=== PATIENT | male | born 1960 | race African-American/Black ===

== ENCOUNTER 2020-12-28 10:31 | Day surgery (SDC) | payer OTHER ==
[2020-12-25 12:25] LABS: Basophils # (auto) 0.1 10 ^3/uL (0-0.2); Basophils % (auto) 1.3 % (0.0-2.0); Eosinophils # (auto) 0.3 10 ^3/uL (0-0.8); Eosinophils % (auto) 3.7 % (0.0-7.0); Hematocrit 40.9 % (41.0-53.0); Hemoglobin 14.6 g/dL (13.5-17.5); Lymphocytes # (auto) 2.6 10 ^3/uL (0.4-5.4); Lymphocytes % (auto) 37.2 % (10.0-50.0); Mean Corpuscular Hemoglobin 29.6 pg (28.0-32.0); Mean Corpuscular Hgb Conc. 35.6 g/dL (32.0-36.0); Mean Corpuscular Volume 83.2 fL (80.0-100.0); Monocytes # (auto) 0.7 10 ^3/uL (0-1.3); Monocytes % (auto) 10.2 % (0.0-12.0); Neutrophils # (auto) 3.3 10 ^3/uL (1.6-8.6); Neutrophils % (auto) 47.6 % (37.0-80.0); Nucleated Red Blood Cells % 0.1 %; Platelet Count (auto) 249 10^3/uL (140-450); Red Blood Cells 4.92 10^6/uL (4.5-5.90); Red Cell Distribution Width 14.2 % (11.8-14.3); White Blood Cell 6.9 10^3/uL (4.4-10.8)
[2020-12-25 12:57] LABS: Potassium 3.5 mmol/L (3.5-5.1)
[2020-12-25 13:07] LABS: Albumin 3.6 g/dL (3.4-5.0); BUN/Creatinine Ratio 14.9; Bilirubin, Total 0.6 mg/dL (0.2-1.0); Calcium 8.6 mg/dL (8.5-10.1); Total Protein 7.1 g/dL (6.4-8.2)
[~2020-12-28] VITALS: Ht 177.8 cm; Wt 84.4 kg
[~2020-12-28 10:31] MED LIST: ACET-1746 PO
[2020-12-28] MEDS ORDERED: SODIUM CHLORIDE LOCK 10 ML ONE (13:20)
[2020-12-28] MEDS ORDERED: diphenhdrAMINE HCL 50 MG/1 ML VL ONE (13:20)
[2020-12-28] MEDS: fentaNYL CITRATE 100 MCG/2 ML VL ONE ×3 (14:11→14:22)
[2020-12-28] MEDS: MIDAZOLAM HCL 5 MG/ML-1ML VIAL ONE ×3 (14:11→14:22)
[2020-12-28 14:29] VITALS: BP 120/74
== END 2020-12-28 15:05 | disposition home or self-care (01) ==
LOC: GI 10:31
PROVIDERS: ATTEND Internal Medicine Gastroenterology
DX: R10.9 Unspecified abdominal pain (principal); D12.4 Benign neoplasm of descending colon; M62.89 Other specified disorders of muscle; K64.8 Other hemorrhoids; K52.9 Noninfective gastroenteritis and colitis, unspecified; K57.30 Diverticulosis of large intestine without perforation or abscess without bleeding; N40.0 Benign prostatic hyperplasia without lower urinary tract symptoms; Z20.822 Contact with and (suspected) exposure to COVID-19; Z98.890 Other specified postprocedural states; Z90.89 Acquired absence of other organs
CPT/HCPCS: 36415; 45380; 45385; 80053; 85025; J1200; J2250; J3010; J7030; U0003; G0500

== ENCOUNTER 2021-01-09 06:54 | Day surgery (SDC) | payer OTHER ==
[2021-01-04 12:05] LABS: Basophils # (auto) 0.1 10 ^3/uL (0-0.2); Basophils % (auto) 1.2 % (0.0-2.0); Eosinophils # (auto) 0.4 10 ^3/uL (0-0.8); Hematocrit 38.2 % (41.0-53.0); Hemoglobin 13.7 g/dL (13.5-17.5); Lymphocytes # (auto) 2.9 10 ^3/uL (0.4-5.4); Lymphocytes % (auto) 41.2 % (10.0-50.0); Mean Corpuscular Hemoglobin 29.8 pg (28.0-32.0); Mean Corpuscular Hgb Conc. 35.7 g/dL (32.0-36.0); Mean Corpuscular Volume 83.5 fL (80.0-100.0); Monocytes # (auto) 0.6 10 ^3/uL (0-1.3); Monocytes % (auto) 8.6 % (0.0-12.0); Neutrophils # (auto) 3.2 10 ^3/uL (1.6-8.6); Nucleated Red Blood Cells % 0.2 %; Red Blood Cells 4.58 10^6/uL (4.5-5.90); Red Cell Distribution Width 13.9 % (11.8-14.3); Urine Bacteria FEW /hpf (None Seen); Urine Blood Negative /uL (Negative); Urine Mucus FEW (None Seen); Urine Specific Gravity 1.032 (1.001-1.035); Urine WBC 1 /hpf (0 - 3); White Blood Cell 7.2 10^3/uL (4.4-10.8)
[2021-01-04 12:34] LABS: Potassium 3.7 mmol/L (3.5-5.1)
[2021-01-04 12:47] LABS: Albumin 3.7 g/dL (3.4-5.0); BUN/Creatinine Ratio 18.4; Bilirubin, Total 0.2 mg/dL (0.2-1.0); Calcium 8.6 mg/dL (8.5-10.1)
[~2021-01-09] VITALS: Ht 177.8 cm; Wt 88.5 kg
[2021-01-09] MEDS ORDERED: METOCLOPRAMIDE HCL 5MG/ml INJ 2ml VIAL IV PRN (08:15)
[2021-01-09] MEDS ORDERED: MORPHINE SULF INJ 2 MG/ML SYRINGE 1ML IV PRN (08:15)
[2021-01-09] MEDS ORDERED: MEPERIDINE HCL (25 MG/ML) 1ML VIAL ONE (08:28)
[2021-01-09] MEDS ORDERED: MIDAZOLAM HCL 1MG/1ML-2 ML VIAL ONE (08:28)
[2021-01-09] MEDS ORDERED: SODIUM CHLORIDE LOCK 10 ML ONE (08:28)
[2021-01-09] MEDS ORDERED: ONDANSETRON HCL 4 MG/2 ML VIAL ONE (08:28)
[2021-01-09] MEDS ORDERED: fentaNYL CITRATE 100 MCG/2 ML VL ONE (08:28)
[2021-01-09] MEDS ORDERED: PROPOFOL 10 MG/ML 20 ML IV ONE (08:28)
[2021-01-09] MEDS ORDERED: DOXAPRAM HCL 20 MG/ML 20ML VIAL INJ IV ONE (08:32)
[2021-01-09] MEDS ORDERED: BUPIVACAINE W/ EPINEPH 0.25% INJ 50ML MDV ONE (08:38)
[2021-01-09] MEDS ORDERED: ceFAZolin 1GM/50ML 100 ML IV ONE (08:39)
[2021-01-09] MEDS: HYDROmorphone HCL 2 MG/ML VL IV PRN ×2 (10:38→11:12)
== END 2021-01-09 11:25 | disposition home or self-care (01) ==
LOC: SUR 06:54
PROVIDERS: ATTEND Surgery
DX: K40.90 Unilateral inguinal hernia, without obstruction or gangrene, not specified as recurrent (principal); I10 Essential (primary) hypertension; F17.210 Nicotine dependence, cigarettes, uncomplicated; Z20.822 Contact with and (suspected) exposure to COVID-19; Z79.82 Long term (current) use of aspirin
CPT/HCPCS: 36415; 49505; 80053; 81001; 85025; 85049; 88302; J0690; J1170; J2175; J2250; J2405; J2704; J3010; Q4140; U0003